=== PATIENT | male | born 1960 | race Caucasian/White ===

== ENCOUNTER → 2020-05-30 10:02 | Outpatient (CLI) | payer OTHER, SELFPAY ==
--- NOTE | 2020-05-30 | DI.RAD.S_ITS ---
PROCEDURE: FL BARIUM SWALLOW W SPEECH INDICATIONS: parkinsons disease COMPARISON: None. TECHNIQUE: Examination was conducted in conjunction with speech pathology per standard protocol. In the lateral projection, filming was performed of the patient swallowing. AP projection filming may also be performed with patient swallowing. COMPARISON: FINDINGS: Function: The oral preparatory phase appears normal, with proper containment. The subsequent oral propulsive phase, pharyngeal phase, and esophageal phase of swallowing also appear normal with all proffered substances. No laryngotracheal penetration or aspiration. Morphology: No cricopharyngeal bar is identified. No cervical esophageal webs. No Zenker's diverticulum. No strictures. IMPRESSION: No aspiration identified Dictated by: Valeriy Howell M.D. on 05/30/2020 at 11:54 Approved by: Valeriy Howell M.D. on 05/30/2020 at 11:57
--- NOTE | 2020-05-30 12:31 | ST.SWALLOW ---
Visit Care Team Role Provider Type Beth Brothers MD Family Provider Physician Primary Care Provider Specialty: Family Practice Address: [facility] [address] [place] [address], [place], [address] Email: [email or web address] Luis Eduardo Worthy MD Attending Provider Non-Staff Referring Provider Specialty: Medical Address: [address] [place] [address], [id number] Email: Modified Barium Swallow Study [employer] Modified Barium Swallow Study Start: 05/30/20 12:11 Freq: Status: Active Protocol: Document 05/30/20 12:11 [email or web address] (Rec: 05/30/20 12:21 [id number]) Modified Barium Swallow Study Total Time Visit Start Time 10:30 Visit Stop Time 11:00 Total Visit Minutes 30 Referral Referring Physician Ruba Saldivar MD Reason for Referral Dysphagia, Parkinson's disease Setting Setting Outpatient Care Patient Information Identification Type Name,ID Card Patient History Pt is a 59-yr-old male who was diagnosed with Parkinson's disease in 2013 afer presenting with light tremor in his right hand and some balance issues. He reported feeling decreased saliva management resulting in throat clearing throughout the day and especially difficulty during dentist appointments. The pt lives alone in [place] and remains independent in basic and instrumental ADLs. He receives Physical Therapy in [place] and walks daily using a walking stick for added stability. He stated that he is looking to work with a Speech Pathologist to assist in swallow management over the course of his PD progression and was eager to have baseline swallow function established via MBSS today. Subjective Observations The pt arrived on time and provided case history supplemental to medical records. Patient Positioning Position View Lat-A/P Imaging Lateral View Textures Administered Trials Presented Thin Liquid via Spoon,Thin Liquid via Cup,Brecon Liquid via Spoon,Brecon Liquid via Cup,Honey Liquid via Spoon, Dysphagia Blenderized Textures ,Regular Textures Oral Phase Source: MBSIMP (TM) (C) Bolus Specific Scoring Grid Lip Closure No Impairment (WNL) Tongue Control During Bolus Hold No Impairment (WNL) Bolus Prep/Mastication WFL Bolus Transport/Lingual Motion Mild Impairment A/P Lingual Propulsion Delay Yes: Minimal; Mild lingual rocking Oral Residue Minimal Impairment Residue Clearing No Impairment (WNL) Nasal Regurgitation No Additional Oral Phase Observations Oral Peripheral Exam: Symmetrical features. Mild lingual tremor observed. Lingual strength WFL; coordination and ROM are WNL. All other structures are WNL of strength, coordination and ROM. Soft palate elevates upon phonation. Pt has natural dentition in good condition, one upper and one lower molar are missing on left side. Pt denies difficulty with mastication. Oral Phase: Mild lingual rocking results in slowed initiation of bolus transport. Once initiated, a/p transport was rivero and swallow trigger was timely. Minimal oral residue was observed with all trials. Pt self-managed effectively with subsequent swallow. Pharyngeal Phase Source: MBSIMP (TM) (C) Bolus Specific Scoring Grid Delayed Initiation of Pharyngeal Swallow No Soft Palate Elevation No Impairment (WNL) Tongue Base Strength/Range of Motion Mild Impairment Residue Along the Tongue Base Yes: Trace, cleared with dry swallow Clearance of Residue Along Tongue Base WFL Laryngeal Elevation No Impairment (WNL) Anterior Hyoid Movement No Impairment (WNL) Epiglottic Range of Motion Mild Impairment Vallecular Residue Yes Clearance of Vallecular Residue Mild Impairment Laryngeal Vestibular Closure No Impairment (WNL) Pharyngeal Stripping Wave Mild Impairment Pharyngeal Contraction No Impairment (WNL) Posterior Pharyngeal Wall Residue No Clearance of Posterior Pharyngeal Wall No Impairment (WNL) Residue Upper Esophageal Sphincter Opening No Impairment (WNL) Residue in the Pyriform Sinuses Yes: Trace to mild, cleared with dry swallow Clearance of Residue in the Pyriform WFL Sinuses Pharyngoesophageal Backflow Observed No: Mildly delayed passage of 13mm barium tablet Additional Pharyngeal Phase Observations Epiglottic contact with posterior pharyngeal wall during swallow prevents complete epiglottic inversion and restricts medial pharyngeal constriction, resulting in mild pharyngeal residue at vallecula, aryepiglottic folds and pyriform sinuses. Residue effectively clears with subsequent dry swallow. No penetration or aspiration was observed with all trials. A/P View Textures Administered Trials Presented Brecon Liquid via Spoon, Dysphagia Blenderized Textures ,Barium Tablet A/P View Observations Pharyngeal Contraction No Impairment (WNL) Residue Observed Valleculae Right,Valleculae Left,Pyriform Sinus Right, Pyriform Sinus Left Esophageal Function WFL Esophageal Clearance Upright Position WFL Additional Observations Barium tablet slowed at medial portion of esophagus. Cleared with additional liquid wash. The pt acknowledged sticking sensation where the pill was lodged and also sensed when it cleared. He stated this is not an unusual experience when taking pills. Clinical Impressions Dysphagia Type Mild Oropharyngeal Findings The pt presents with mild oropharyngeal dysphagia. Oral dysphagia is secondary to mild lingual tremor that delays initiation of a/p bolus transport. Once initiated, transport is rivero and swallow trigger is timely. Oral residue with WNL and easily self-managed by the pt. Pharyngeal dysphagia is characterized by reduced tongue base strength and incomplete epiglottic inversion. The epiglottis makes contact with the pharyngeal wall at or just past the horizontal level, increased with bolus bulk. This restricts the medial constrictor from full participation in pharyngeal stripping wave and results in mild residue at vallecula, along aryepiglottic folds, and in pyriform sinuses. Residue is greatest and most consistently present at vallecula. A subsequent dry swallow was effective in clearing all but trace amounts of residue. It's possible this residue is contributing to the pt's throat clearing, although no penetration of contrast into the laryngeal vestibule nor tracheal aspiration was observed during or after swallows. Given the pt's early stage status in Parkinson's disease progression, he is an excellent candidate for dysphagia therapy. Research indicates disease progression can be slowed with early intervention. Therapy should target exercises to increase strength, coordination and ROM of swallow musculature to improve current function/ safety and be trained in long- term HEP to maintain highest level of swallow function and safety for the duration of the disease. Rehabilitation Potential Excellent Patient Appropriate for Therapy Yes Recommendations Diet Liquids Order Thin Diet Order Regular Medication Recommendation As Tolerated Aspiration Precautions Recommended Precautions Upright at 90 Degrees,Chin Tuck,Double Swallow Treatment Plan Therapy Recommendations Outpatient Speech Therapy, Lingual Exercises,Base of Tongue Exercises,Other Additional Therapy Recommendations Epiglottic inversion; pharyngeal stripping wave. Compensatory Strategies Recommendations Double Swallow Short Term Goals 1. Exercises to increase strength, coordination and ROM of swallow musculature to reduce pharyngeal residue and risk of aspiration and to improve saliva management. 2. Education RE potential effects of PD on swallow safety, as well as other areas impacted by PD (e.g., communication, voice, etc.). 3. Development of long-term HEP. Fdc Goals 1. The pt will tolerate regular texture and thin liquids without overt s/sx of aspiration. 2. The pt will verbalize understanding of education and training in long-term HEP to improve current swallow function and assist in maintaining highest level of function and airway safety over the duration of disease progression.
== END ==
PROVIDERS: Family Provider Family Medicine Geriatric Medicine; PCP Family Medicine Geriatric Medicine; Referring Provider Neuromusculoskeletal Medicine, Sports Medicine; Visit Provider Neuromusculoskeletal Medicine, Sports Medicine
DX: G20 Parkinson's disease (principal)
CPT/HCPCS: 74230; 92611